=== PATIENT | female | born 1940 | race African-American/Black ===

== ENCOUNTER → 2018-05-01 | Outpatient (CLI) | payer MEDICARE, OTHER ==
[~2018-05-01] MED LIST: DIGO125T82 PO; DOCU-138 PO; ELIQUIS PO; FAMO20TA8 PO; FURO40TA5 PO; LEVE500T19 PO; LIP40 PO; METF500T6 PO; OCD PO; PHEN100C12 PO
== END | disposition home or self-care (01) ==
LOC: RAD 11:31
PROVIDERS: ATTEND Family Medicine
DX: J16.8 Pneumonia due to other specified infectious organisms (principal)
CPT/HCPCS: 71046

== ENCOUNTER 2023-05-08 20:35 | Inpatient (IN) | payer MEDICARE, OTHER ==
[~2023-05-08] VITALS: Ht 188 cm; Wt 71.7 kg
[~2023-05-08 20:35] MED LIST changes: +DIGO125T PO; -DIGO125T82 PO; +METF-414 PO; -METF500T6 PO
[2023-05-08 23:09] LABS: CLARITY URINE CLOUDY (CLEAR); COLOR URINE DARK YELLOW (YELLOW); KETONES URINE NEGATIVE (NEGATIVE); LEUKOCYTE ESTERASE URINE 3+ (NEGATIVE); NITRITE URINE NEGATIVE (NEGATIVE); OCCULT BLOOD URINE 1+ (NEGATIVE); PH URINE 5.5 (4.5-8.0); PROTEIN URINE TRACE (NEGATIVE)
[2023-05-08 23:34] LABS: EOSINOPHILS % 1.6 % (0.0-5.0); HEMATOCRIT. 38.5 % (36.0-48.0); HEMOGLOBIN. 12.7 g/dL (12.0-16.0); LYMPHOCYTES % 36.3 % (20.0-50.0); MEAN CORPUSCULAR VOLUME 94.1 fL (81.0-99.0); MEAN PLATELET VOLUME 8.2 fl (7.4-10.4); MONOCYTES % 10.9 % (2.0-8.0); NEUTROPHILS % 50.2 % (40.0-76.0); PLATELET 240 x1000/uL (130-400); RED BLOOD CELL COUNT 4.09 mill/uL (4.2-5.4); RED CELL DISTRIBUTION WIDTH 15.1 % (11.6-14.6)
[2023-05-08 23:40] LABS: INR 1.2; PROTHROMBIN TIME 12.4 sec (9.6-11.0)
[2023-05-08 23:50] LABS: CHLORIDE 108 mEq/L (98-107)
[2023-05-09] MEDS ORDERED: CEFTRIAXONE 1GM PREMIX 50 ML IV NR (01:30)
[2023-05-09] MEDS ORDERED: FLUCONAZOLE 100MG TABLET PO NR (01:30)
[2023-05-09 04:00] VITALS: BP 128/83; PULSE 80; RESP 20; TEMP 97.8
[2023-05-09 04:37] VITALS: BP 138/74; PULSE 80; RESP 20; TEMP 96.4
[2023-05-09] MEDS ORDERED: LEVETIRACETAM 500MG TABLET PO ONE (06:15)
[2023-05-09] MEDS ORDERED: ACETAMINOPHEN 325MG TABLET PO PRN ×3 (06:15→12:00)
[2023-05-09] MEDS ORDERED: ASPIRIN 81MG TABLET PO ONE (06:15)
[2023-05-09 08:00] VITALS: BP 124/80; PULSE 87; RESP 19; TEMP 98.1
[2023-05-09] MEDS: ASPIRIN 81MG TABLET PO SCH (09:00)
[2023-05-09] MEDS: AMIODARONE HCL 200 MG TABLET PO SCH (09:00)
[2023-05-09] MEDS: LOSARTAN POTASSIUM 50 MG TABLET PO SCH (09:00)
[2023-05-09] MEDS: LEVETIRACETAM 500MG TABLET PO SCH (09:00)
[2023-05-09] MEDS: DIGOXIN 125MCG TABLET PO SCH (09:00)
[2023-05-09] MEDS: PANTOPRAZOLE SODIUM 40 MG/VIAL IV SCH (09:00)
[2023-05-09 12:00] VITALS: BP 128/76; PULSE 74; RESP 20; TEMP 98.2
[2023-05-09] MEDS ORDERED: DOCUSATE SODIUM 100MG CAPSULE PO PRN (12:00)
[2023-05-09] MEDS ORDERED: FLUCONAZOLE 200MG/100ML PREMIX IV ONE (12:00)
[2023-05-09] MEDS ORDERED: IPRATROPIUM/ALBUTEROL 0.5-3(2.5)MG/3ML NEB HHN PRN (12:00)
[2023-05-09] MEDS ORDERED: ONDANSETRON HCL 4MG/2ML INJ IV PRN (12:00)
[2023-05-09 13:33] LABS: CHLORIDE 108 mEq/L (98-107)
[2023-05-09] MEDS ORDERED: FLUCONAZOLE 200 MG/100ML BAG 100 ML IV NR (14:00)
[2023-05-09 14:10] LABS: BASOPHILS % 1.1 % (0.0-2.0); EOSINOPHILS % 2.3 % (0.0-5.0); HEMOGLOBIN. 12.3 g/dL (12.0-16.0); LYMPHOCYTES % 41.2 % (20.0-50.0); MEAN CORPUSCULAR HEMOGLOBIN 31.1 pg (28.0-32.0); MEAN CORPUSCULAR VOLUME 93.9 fL (81.0-99.0); MEAN PLATELET VOLUME 8.7 fl (7.4-10.4); MONOCYTES % 9.6 % (2.0-8.0); NEUTROPHILS % 45.8 % (40.0-76.0); PLATELET 268 x1000/uL (130-400); RED BLOOD CELL COUNT 3.94 mill/uL (4.2-5.4); RED CELL DISTRIBUTION WIDTH 15.2 % (11.6-14.6)
[2023-05-09 16:00] VITALS: BP 147/85; PULSE 56; RESP 20; TEMP 97.9
[2023-05-09] MEDS ORDERED: DEXTROSE 50% WATER 50ML SYRINGE IV PRN (16:45)
[2023-05-09] MEDS: ATORVASTATIN CALCIUM 40MG TABLET PO SCH (17:00)
[2023-05-09] MEDS: LORAZEPAM 2MG/ML CPJ IV NR (17:08)
[2023-05-09] MEDS: BLOOD SUGAR DIAGNOSTIC STRIP TEST SCH ×2 (17:20→21:00)
[2023-05-09] MEDS: INSULIN LISPRO 100 UNITS/ML SUBCUT SCH ×2 (17:50→21:00)
[2023-05-09 20:00] VITALS: BP 136/56; PULSE 68; RESP 17; TEMP 98.7
[2023-05-09] MEDS: CEFTRIAXONE 1,000 MG in DEXTROSE 5% WATER 50 ML IV SCH (21:57)
[2023-05-09 22:16] LABS: CREATINE KINASE 50 IU/L (26-192)
[2023-05-10] VITALS: BP 119/68; PULSE 71; RESP 18; TEMP 97.4
[2023-05-10 04:00] VITALS: BP 139/72; PULSE 71; RESP 20; TEMP 98.6
[2023-05-10] MEDS: BLOOD SUGAR DIAGNOSTIC STRIP TEST SCH ×4 (06:37→21:30)
[2023-05-10] MEDS: INSULIN LISPRO 100 UNITS/ML SUBCUT SCH ×4 (07:50→21:00)
[2023-05-10] MEDS: CALCIUM CARBONATE/VITAMIN D3 500MG TABLET PO SCH (08:48)
[2023-05-10] MEDS: DIGOXIN 125MCG TABLET PO SCH (08:48)
[2023-05-10] MEDS: LEVETIRACETAM 500MG TABLET PO SCH (08:49)
[2023-05-10] MEDS: LOSARTAN POTASSIUM 50 MG TABLET PO SCH (08:49)
[2023-05-10] MEDS: FUROSEMIDE 40MG TABLET PO SCH (08:49)
[2023-05-10] MEDS: ASPIRIN 81MG TABLET PO SCH (08:50)
[2023-05-10] MEDS: PANTOPRAZOLE SODIUM 40 MG/VIAL IV SCH (08:50)
[2023-05-10 12:00] VITALS: BP 87/65; PULSE 70; RESP 17; TEMP 96.6
[2023-05-10] MEDS ORDERED: APIXABAN 5 MG TABLET PO SCH (12:00)
[2023-05-10 15:05] VITALS: BP 87/65; PULSE 70; TEMP 96.6; O2SAT 97
[2023-05-10 16:00] VITALS: BP 136/76; PULSE 83; RESP 20; TEMP 96.9
[2023-05-10] MEDS: LORAZEPAM 2MG/ML CPJ IV NR (16:30)
[2023-05-10] MEDS: ATORVASTATIN CALCIUM 40MG TABLET PO SCH (17:00)
[2023-05-10] MEDS: APIXABAN 2.5 MG TABLET PO SCH (17:00)
[2023-05-10 20:00] VITALS: BP 134/77; PULSE 76; RESP 20; TEMP 98.8
[2023-05-10] MEDS: CEFTRIAXONE 1,000 MG in DEXTROSE 5% WATER 50 ML IV SCH (21:32)
[2023-05-11] VITALS: BP 130/80; PULSE 90; RESP 18; TEMP 98.7
[2023-05-11 04:00] VITALS: BP 138/83; PULSE 90; RESP 16; TEMP 98.2
[2023-05-11] MEDS: BLOOD SUGAR DIAGNOSTIC STRIP TEST SCH ×2 (05:40→12:06)
[2023-05-11 07:49] LABS: BASOPHILS % 1.5 % (0.0-2.0); HEMATOCRIT. 36.3 % (36.0-48.0); HEMOGLOBIN. 12.6 g/dL (12.0-16.0); LYMPHOCYTES % 41.4 % (20.0-50.0); MEAN CORPUSCULAR VOLUME 92.6 fL (81.0-99.0); MEAN PLATELET VOLUME 8.2 fl (7.4-10.4); MONOCYTES % 8.5 % (2.0-8.0); NEUTROPHILS % 45.6 % (40.0-76.0); PLATELET 290 x1000/uL (130-400); RED BLOOD CELL COUNT 3.92 mill/uL (4.2-5.4)
[2023-05-11] MEDS: INSULIN LISPRO 100 UNITS/ML SUBCUT SCH ×2 (07:50→12:07)
[2023-05-11 07:54] LABS: CHLORIDE 105 mEq/L (98-107)
[2023-05-11] MEDS: LEVETIRACETAM 500MG TABLET PO SCH ×2 (07:57→08:46)
[2023-05-11] MEDS: APIXABAN 2.5 MG TABLET PO SCH ×2 (07:57→08:46)
[2023-05-11] MEDS: CALCIUM CARBONATE/VITAMIN D3 500MG TABLET PO SCH ×2 (07:57→08:46)
[2023-05-11] MEDS: FUROSEMIDE 40MG TABLET PO SCH ×2 (07:57→08:46)
[2023-05-11] MEDS: DIGOXIN 125MCG TABLET PO SCH ×2 (07:57→08:46)
[2023-05-11] MEDS: ASPIRIN 81MG TABLET PO SCH ×2 (07:57→08:46)
[2023-05-11] MEDS: LOSARTAN POTASSIUM 50 MG TABLET PO SCH ×2 (07:57→08:46)
[2023-05-11] MEDS: AMIODARONE HCL 200 MG TABLET PO SCH ×2 (07:57→08:46)
[2023-05-11] MEDS: FAMOTIDINE 20MG/2ML VIAL IV SCH ×2 (07:58→08:46)
[2023-05-11 08:00] VITALS: BP 140/87; PULSE 73; RESP 19; TEMP 96.6
[2023-05-11 08:07] LABS: HDL CHOLESTEROL 38 mg/dL (40-59); LDL CHOLESTEROL 126 mg/dL (5-100)
[2023-05-11 12:00] VITALS: BP 109/72; PULSE 66; RESP 19; TEMP 97.9
== END 2023-05-11 14:46 | disposition home or self-care (01) | DRG 463 ==
LOC: ER 20:35 → MICUSO 05-09 02:23 → 6EST 05-09 03:58
PROVIDERS: ADMIT Internal Medicine; ATTEND Internal Medicine
DX: B37.49 Other urogenital candidiasis (principal); I42.9 Cardiomyopathy, unspecified; I50.9 Heart failure, unspecified; I11.0 Hypertensive heart disease with heart failure; I48.20 Chronic atrial fibrillation, unspecified; I69.351 Hemiplegia and hemiparesis following cerebral infarction affecting right dominant side; E11.9 Type 2 diabetes mellitus without complications; M06.9 Rheumatoid arthritis, unspecified; E78.5 Hyperlipidemia, unspecified; Z74.01 Bed confinement status; I25.2 Old myocardial infarction; Z79.01 Long term (current) use of anticoagulants; Z88.0 Allergy status to penicillin; Z79.4 Long term (current) use of insulin; Z99.3 Dependence on wheelchair; W18.30XA Fall on same level, unspecified, initial encounter; Y93.89 Activity, other specified; Y92.89 Other specified places as the place of occurrence of the external cause; Y99.8 Other external cause status
CPT/HCPCS: 36415; 70551; 71045; 72141; 80048; 80053; 80061; 80185; 81003; 82550; 82962; 83036; 83605; 83735; 84145; 84484; 85025; 87077; 87186; 93005; 93306; 99285; A6261; C9113; J0696; J1450; J2060; J7060

== ENCOUNTER 2023-06-10 11:22 | Inpatient (IN) | payer MEDICARE, OTHER ==
[~2023-06-10] VITALS: Ht 188 cm; Wt 73.9 kg
[~2023-06-10 11:22] MED LIST changes: -ELIQUIS PO
[2023-06-10] MEDS ORDERED: KEPP500 PO (12:57)
[2023-06-10] MEDS ORDERED: APIX2.5T PO (12:57)
[2023-06-10] MEDS ORDERED: LOSA50TA41 PO (12:58)
[2023-06-10] MEDS ORDERED: CLONIDINE 0.1MG TABLET PO PRN (13:00)
[2023-06-10] MEDS ORDERED: ACETAMINOPHEN 325MG TABLET PO PRN (13:00)
[2023-06-10] MEDS ORDERED: ONDANSETRON HCL 4MG/2ML INJ IV PRN (13:00)
[2023-06-10] MEDS ORDERED: DOCU250C14 PO (13:00)
[2023-06-10 13:05] LABS: BASOPHILS % 0.9 % (0.0-2.0); EOSINOPHILS % 0.2 % (0.0-5.0); HEMATOCRIT. 32.9 % (36.0-48.0); LYMPHOCYTES % 17.5 % (20.0-50.0); MEAN CORPUSCULAR HEMOGLOBIN 30.4 pg (28.0-32.0); MEAN CORPUSCULAR HGB CONC 33.4 g/dL (31.0-37.0); MEAN CORPUSCULAR VOLUME 91.2 fL (81.0-99.0); MEAN PLATELET VOLUME 7.3 fl (7.4-10.4); MONOCYTES % 6.9 % (2.0-8.0); NEUTROPHILS % 74.5 % (40.0-76.0); PLATELET 319 x1000/uL (130-400); RED CELL DISTRIBUTION WIDTH 15.3 % (11.6-14.6); WHITE BLOOD COUNT 10.5 x1000/uL (4.5-11.0)
[2023-06-10 13:13] LABS: CHLORIDE 106 mEq/L (98-107); INDEX HEMOLYSI 1 (1-3); INDEX ICTERIC 1 (1-4); INDEX LIPEMIC 1 (1-3); POTASSIUM 3.8 mEq/L (3.5-5.1); SODIUM 136 mEq/L (136-145)
[2023-06-10] MEDS: SODIUM CHLORIDE 0.45% 1,000 ML IV SCH (13:17)
[2023-06-10 13:24] LABS: ALANINE AMINOTRANSFERASE 23 IU/L (13-61); ALBUMIN 2.2 g/dL (3.4-5.0); ASPARTATE AMINOTRANSFERASE 26 IU/L (15-37); BILIRUBIN TOTAL 0.8 mg/dL (0.1-1.0); CALCIUM 8.5 mg/dL (8.5-10.1); CARBON DIOXIDE 25 mEq/L (21-32); CREATININE 0.7 mg/dL (0.6-1.3); GLUCOSE 144 mg/dL (70-105); PROTEIN TOTAL 8.5 g/dL (6.0-8.3); TROPONIN I HIGH SENSITIVITY 40 ng/L (<54); UREA NITROGEN BLOOD 12 mg/dL (7-21)
[2023-06-10 14:32] LABS: CLARITY URINE TURBID (CLEAR); COLOR URINE DARK YELLOW (YELLOW); GLUCOSE URINE NEGATIVE (NEGATIVE); KETONES URINE NEGATIVE (NEGATIVE); LEUKOCYTE ESTERASE URINE 3+ (NEGATIVE); NITRITE URINE NEGATIVE (NEGATIVE); OCCULT BLOOD URINE 2+ (NEGATIVE); PROTEIN URINE 1+ (NEGATIVE); SPECIFIC GRAVITY URINE 1.015 (1.005-1.030)
[2023-06-10 14:59] LABS: *AMPHETAMINES SCREEN URINE NEGATIVE (NEGATIVE); *BARBITURATES SCREEN URINE NEGATIVE (NEGATIVE); *BENZODIAZEPINES SCREEN URINE NEGATIVE (NEGATIVE); *COCAINE SCREEN URINE NEGATIVE (NEGATIVE); CANNABINOID URINE SCREEN NEGATIVE (NEGATIVE); ECSTASY MDMA SCREEN URINE NEGATIVE (NEGATIVE); METHADONE URINE SCREEN NEGATIVE (NEGATIVE); OPIATES URINE SCREEN NEGATIVE (NEGATIVE); PHENCYCLIDINE URINE SCREEN NEGATIVE (NEGATIVE)
[2023-06-10] MEDS ORDERED: CEFTRIAXONE 1GM PREMIX 50 ML IV ONE (15:00)
[2023-06-10 15:04] LABS: WBC URINE 50-100 /hpf (0-2)
[2023-06-10 15:05] LABS: BACTERIA URINE 1+; SQUAMOUS EPITHELIAL CELL URINE 2+ /lpf (RARE/1+); YEAST URINE 4+
[2023-06-10] MEDS: AMIODARONE HCL 200 MG TABLET PO SCH (15:15)
[2023-06-10] MEDS: ATORVASTATIN CALCIUM 40MG TABLET PO SCH (17:00)
[2023-06-10] MEDS: APIXABAN 2.5 MG TABLET PO SCH (17:00)
[2023-06-10] MEDS: CARVEDILOL 6.25 MG TABLET PO SCH (17:57)
[2023-06-10] MEDS: LEVETIRACETAM 500MG TABLET PO SCH (17:58)
[2023-06-10] MEDS: PHENYTOIN SODIUM EXTENDED 100MG CAPSULE PO SCH (17:58)
[2023-06-10 21:00] VITALS: BP 146/73; PULSE 82; RESP 16; TEMP 97.5
[2023-06-10] MEDS: METFORMIN HCL 500MG TABLET PO SCH (21:00)
[2023-06-10 22:26] LABS: VITAMIN B12 SERUM 372 pg/mL (211-911)
[2023-06-10] MEDS ORDERED: FAMO40TA7 PO (23:03)
[2023-06-10] MEDS ORDERED: AMIO100T4 PO (23:03)
[2023-06-10] MEDS ORDERED: VITA250012 PO (23:03)
[2023-06-10 23:35] LABS: PHENYTOIN 4.8 ug/mL (10-20); T4 FREE 1.99 ng/dL (0.76-1.46); THYROID STIMULATING HORMONE 0.44 uIU/mL (0.36-3.74)
[2023-06-11] VITALS: BP 124/79; PULSE 74; RESP 18; TEMP 99.7
[2023-06-11 04:00] VITALS: BP 138/92; PULSE 82; RESP 17; TEMP 97.6
[2023-06-11] MEDS: SODIUM CHLORIDE 0.45% 1,000 ML IV SCH ×2 (05:06→21:16)
[2023-06-11 06:01] LABS: BASOPHILS % 0.6 % (0.0-2.0); EOSINOPHILS % 0.5 % (0.0-5.0); HEMATOCRIT. 29.5 % (36.0-48.0); LYMPHOCYTES % 16.8 % (20.0-50.0); MEAN CORPUSCULAR HEMOGLOBIN 30.7 pg (28.0-32.0); MEAN CORPUSCULAR HGB CONC 33.9 g/dL (31.0-37.0); MEAN CORPUSCULAR VOLUME 90.7 fL (81.0-99.0); MEAN PLATELET VOLUME 7.7 fl (7.4-10.4); MONOCYTES % 8.8 % (2.0-8.0); NEUTROPHILS % 73.3 % (40.0-76.0); PLATELET 312 x1000/uL (130-400); RED BLOOD CELL COUNT 3.26 mill/uL (4.2-5.4); WHITE BLOOD COUNT 9.7 x1000/uL (4.5-11.0)
[2023-06-11 07:02] LABS: CHLORIDE 103 mEq/L (98-107); INDEX HEMOLYSI 1 (1-3); INDEX ICTERIC 1 (1-4); INDEX LIPEMIC 1 (1-3); POTASSIUM 3.7 mEq/L (3.5-5.1); SODIUM 134 mEq/L (136-145)
[2023-06-11 07:13] LABS: ALANINE AMINOTRANSFERASE 17 IU/L (13-61); ALBUMIN 1.9 g/dL (3.4-5.0); ASPARTATE AMINOTRANSFERASE 17 IU/L (15-37); BILIRUBIN TOTAL 0.7 mg/dL (0.1-1.0); CALCIUM 8.2 mg/dL (8.5-10.1); CARBON DIOXIDE 25 mEq/L (21-32); CREATININE 0.5 mg/dL (0.6-1.3); GLUCOSE 143 mg/dL (70-105); PROTEIN TOTAL 7.5 g/dL (6.0-8.3); UREA NITROGEN BLOOD 9 mg/dL (7-21)
[2023-06-11] MEDS: PHENYTOIN SODIUM EXTENDED 100MG CAPSULE PO SCH ×3 (09:28→21:11)
[2023-06-11] MEDS: LEVETIRACETAM 500MG TABLET PO SCH ×2 (09:28→17:01)
[2023-06-11] MEDS: FUROSEMIDE 40MG TABLET PO SCH (09:28)
[2023-06-11] MEDS: APIXABAN 2.5 MG TABLET PO SCH ×2 (09:29→17:02)
[2023-06-11] MEDS: CARVEDILOL 6.25 MG TABLET PO SCH ×2 (09:29→17:01)
[2023-06-11] MEDS: AMIODARONE HCL 200 MG TABLET PO SCH (09:29)
[2023-06-11] MEDS: LOSARTAN 50 MG TABLET PO SCH (10:00)
[2023-06-11] MEDS ORDERED: DEXTROSE 50% WATER 50ML SYRINGE IV PRN (11:30)
[2023-06-11 12:00] VITALS: BP 158/71; PULSE 102; RESP 18; TEMP 98.8
[2023-06-11] MEDS: BLOOD SUGAR DIAGNOSTIC STRIP TEST SCH ×3 (12:10→21:16)
[2023-06-11] MEDS ORDERED: NITROGLYCERIN SPRAY/4.9GM CAN TL NR (12:15)
[2023-06-11] MEDS: INSULIN LISPRO 100 UNITS/ML SUBCUT SCH ×3 (12:40→21:16)
[2023-06-11] MEDS ORDERED: IOHEXOL-350 100 ML BOTTLE ONE (12:40)
[2023-06-11] MEDS ORDERED: FLUCONAZOLE 200 MG/100ML BAG 100 ML IV SCH (13:00)
[2023-06-11] MEDS ORDERED: VANCOMYCIN 1.25GM PMX (XELLIA) 250 ML IV NR (14:00)
[2023-06-11] MEDS ORDERED: CALC1TAB PO (14:54)
[2023-06-11] MEDS ORDERED: AMI2 PO (14:57)
[2023-06-11] MEDS ORDERED: LOSA50TA41 PO (14:58)
[2023-06-11 16:00] VITALS: BP 119/68; PULSE 68; RESP 18; TEMP 97.6
[2023-06-11] MEDS: ATORVASTATIN CALCIUM 40MG TABLET PO SCH (17:01)
[2023-06-11] MEDS: FLUCONAZOLE 200 MG/100ML BAG 100 ML IV SCH (18:00)
[2023-06-11 20:00] VITALS: BP 125/81; PULSE 91; RESP 18; TEMP 98.1
[2023-06-11] MEDS: METFORMIN HCL 500MG TABLET PO SCH (21:11)
[2023-06-12] VITALS: BP_SYST 113; BP_SYST 117; BP_DIAS 59; BP_DIAS 68; PULSE 77; PULSE 92; RESP 17; RESP 18; TEMP 97.8; TEMP 98.1
[2023-06-12 04:00] VITALS: BP 124/70; PULSE 78; RESP 18; TEMP 99
[2023-06-12] MEDS: BLOOD SUGAR DIAGNOSTIC STRIP TEST SCH ×4 (06:34→21:00)
[2023-06-12] MEDS: INSULIN LISPRO 100 UNITS/ML SUBCUT SCH ×4 (07:00→21:00)
[2023-06-12 08:00] VITALS: BP 122/68; PULSE 78; RESP 18; TEMP 97.8
[2023-06-12] MEDS: LEVETIRACETAM 500MG TABLET PO SCH ×2 (09:27→16:25)
[2023-06-12] MEDS: LOSARTAN 50 MG TABLET PO SCH (09:27)
[2023-06-12] MEDS: AMIODARONE HCL 200 MG TABLET PO SCH (09:28)
[2023-06-12] MEDS: FUROSEMIDE 40MG TABLET PO SCH (09:28)
[2023-06-12] MEDS: CARVEDILOL 6.25 MG TABLET PO SCH ×2 (09:29→16:25)
[2023-06-12 12:00] VITALS: BP 98/61; PULSE 80; RESP 18; TEMP 97.7
[2023-06-12] MEDS: VANCOMYCIN 1G PREMIX 200 ML IV SCH (14:44)
[2023-06-12] MEDS: FLUCONAZOLE 200 MG/100ML BAG 100 ML IV SCH (15:27)
[2023-06-12 16:00] VITALS: BP 135/85; PULSE 91; RESP 18; TEMP 98.6
[2023-06-12] MEDS: ATORVASTATIN CALCIUM 40MG TABLET PO SCH (17:22)
[2023-06-12 17:57] LABS: BASOPHILS % 0.4 % (0.0-2.0); EOSINOPHILS % 0.4 % (0.0-5.0); HEMOGLOBIN. 10.3 g/dL (12.0-16.0); LYMPHOCYTES % 16.8 % (20.0-50.0); MEAN CORPUSCULAR HEMOGLOBIN 29.8 pg (28.0-32.0); MEAN CORPUSCULAR HGB CONC 32.1 g/dL (31.0-37.0); MEAN CORPUSCULAR VOLUME 92.7 fL (81.0-99.0); MONOCYTES % 8.8 % (2.0-8.0); NEUTROPHILS % 73.6 % (40.0-76.0); PLATELET 315 x1000/uL (130-400); RED BLOOD CELL COUNT 3.45 mill/uL (4.2-5.4); RED CELL DISTRIBUTION WIDTH 15.7 % (11.6-14.6); WHITE BLOOD COUNT 7.9 x1000/uL (4.5-11.0)
[2023-06-12 18:10] LABS: CHLORIDE 106 mEq/L (98-107); INDEX HEMOLYSI 2 (1-3); INDEX ICTERIC 1 (1-4); INDEX LIPEMIC 1 (1-3); POTASSIUM 4.4 mEq/L (3.5-5.1); SODIUM 135 mEq/L (136-145)
[2023-06-12 18:14] LABS: CALCIUM 8.3 mg/dL (8.5-10.1); CARBON DIOXIDE 22 mEq/L (21-32); CREATININE 0.5 mg/dL (0.6-1.3); GLUCOSE 167 mg/dL (70-105); UREA NITROGEN BLOOD 10 mg/dL (7-21)
[2023-06-12 20:00] VITALS: PULSE 89; RESP 18; TEMP 98
[2023-06-12] MEDS: METFORMIN HCL 500MG TABLET PO SCH (21:00)
[2023-06-12] MEDS: PHENYTOIN SODIUM EXTENDED 100MG CAPSULE PO SCH (21:17)
[2023-06-12] MEDS: SODIUM CHLORIDE 0.45% 1,000 ML IV SCH (21:18)
[2023-06-13] VITALS: PULSE 81; RESP 20; TEMP 97.8
[2023-06-13 04:00] VITALS: BP 108/55; PULSE 72; RESP 18; TEMP 97.9
[2023-06-13 04:08] VITALS: PULSE 81; RESP 20; TEMP 98
[2023-06-13] MEDS: BLOOD SUGAR DIAGNOSTIC STRIP TEST SCH ×4 (06:03→20:20)
[2023-06-13] MEDS: INSULIN LISPRO 100 UNITS/ML SUBCUT SCH ×4 (06:03→21:00)
[2023-06-13] MEDS: SODIUM CHLORIDE 0.45% 1,000 ML IV SCH ×2 (06:07→20:14)
[2023-06-13 07:17] LABS: BASOPHILS % 0.5 % (0.0-2.0); EOSINOPHILS % 0.6 % (0.0-5.0); HEMATOCRIT. 29.1 % (36.0-48.0); HEMOGLOBIN. 9.6 g/dL (12.0-16.0); LYMPHOCYTES % 21.2 % (20.0-50.0); MEAN CORPUSCULAR HEMOGLOBIN 29.8 pg (28.0-32.0); MEAN CORPUSCULAR VOLUME 90.3 fL (81.0-99.0); MEAN PLATELET VOLUME 7.8 fl (7.4-10.4); MONOCYTES % 10.1 % (2.0-8.0); NEUTROPHILS % 67.6 % (40.0-76.0); PLATELET 337 x1000/uL (130-400); RED BLOOD CELL COUNT 3.22 mill/uL (4.2-5.4); RED CELL DISTRIBUTION WIDTH 15.4 % (11.6-14.6); WHITE BLOOD COUNT 8.3 x1000/uL (4.5-11.0)
[2023-06-13] MEDS ORDERED: BUPIVACAINE HCL/PF 0.5% (5MG/ML) 10ML ONE (07:28)
[2023-06-13] MEDS ORDERED: LIDOCAINE HCL 1% 20ML VIAL (Pyxis) INJ ONE (07:28)
[2023-06-13] MEDS ORDERED: POLYMYXIN B SULFATE 500000 UNITS/VIAL ONE (07:31)
[2023-06-13] MEDS ORDERED: ETOMIDATE 2MG/ML 10ML VIAL IV ONE (07:36)
[2023-06-13] MEDS ORDERED: SUCCINYLCHOLINE CHLORIDE 200MG/10ML IV ONE (07:36)
[2023-06-13] MEDS ORDERED: PHENYLEPHRINE HCL 10 MG/ML 1ML (IV VIAL) IV ONE (07:41)
[2023-06-13 08:02] LABS: CHLORIDE 105 mEq/L (98-107); INDEX HEMOLYSI 1 (1-3); INDEX ICTERIC 1 (1-4); INDEX LIPEMIC 1 (1-3); POTASSIUM 3.6 mEq/L (3.5-5.1); SODIUM 134 mEq/L (136-145)
[2023-06-13] MEDS ORDERED: CLINDAMYCIN 600MG PREMIX 50 ML IV ONE (08:08)
[2023-06-13 08:11] LABS: CALCIUM 8.3 mg/dL (8.5-10.1); CARBON DIOXIDE 24 mEq/L (21-32); CREATININE 0.5 mg/dL (0.6-1.3); GLUCOSE 130 mg/dL (70-105); UREA NITROGEN BLOOD 9 mg/dL (7-21)
[2023-06-13] MEDS: CARVEDILOL 6.25 MG TABLET PO SCH ×2 (09:00→16:46)
[2023-06-13] MEDS: AMIODARONE HCL 200 MG TABLET PO SCH (09:00)
[2023-06-13] MEDS: LEVETIRACETAM 500MG TABLET PO SCH ×2 (09:00→16:46)
[2023-06-13] MEDS: FUROSEMIDE 40MG TABLET PO SCH (09:00)
[2023-06-13] MEDS: LOSARTAN 50 MG TABLET PO SCH (09:00)
[2023-06-13] MEDS: VANCOMYCIN 1G PREMIX 200 ML IV SCH (09:00)
[2023-06-13 12:00] VITALS: BP 138/66; PULSE 75; RESP 17; TEMP 98.3
[2023-06-13 16:00] VITALS: BP 132/63; PULSE 73; RESP 18; TEMP 98
[2023-06-13] MEDS: FLUCONAZOLE 200 MG/100ML BAG 100 ML IV SCH (16:39)
[2023-06-13] MEDS: ATORVASTATIN CALCIUM 40MG TABLET PO SCH (16:45)
[2023-06-13 20:00] VITALS: BP 99/64; PULSE 73; RESP 18; TEMP 96.8
[2023-06-13] MEDS: PHENYTOIN SODIUM EXTENDED 100MG CAPSULE PO SCH (20:14)
[2023-06-13] MEDS: METFORMIN HCL 500MG TABLET PO SCH (21:00)
[2023-06-14] VITALS: BP 114/66; PULSE 73; RESP 18; TEMP 96.8
[2023-06-14 04:00] VITALS: BP 114/64; PULSE 69; RESP 18; TEMP 96.8
[2023-06-14] MEDS: BLOOD SUGAR DIAGNOSTIC STRIP TEST SCH ×4 (07:10→20:18)
[2023-06-14] MEDS: INSULIN LISPRO 100 UNITS/ML SUBCUT SCH ×4 (07:17→20:17)
[2023-06-14 08:00] VITALS: BP 117/68; PULSE 72; RESP 18; TEMP 97.8
[2023-06-14] MEDS: VANCOMYCIN 1G PREMIX 200 ML IV SCH (08:36)
[2023-06-14] MEDS: LOSARTAN 50 MG TABLET PO SCH (09:41)
[2023-06-14] MEDS: LEVETIRACETAM 500MG TABLET PO SCH ×2 (09:41→18:28)
[2023-06-14] MEDS: APIXABAN 2.5 MG TABLET PO SCH ×2 (09:41→18:28)
[2023-06-14] MEDS: AMIODARONE HCL 200 MG TABLET PO SCH (09:41)
[2023-06-14] MEDS: FUROSEMIDE 40MG TABLET PO SCH (09:42)
[2023-06-14] MEDS: CARVEDILOL 6.25 MG TABLET PO SCH ×2 (09:42→18:27)
[2023-06-14 11:26] LABS: BASOPHILS % 0.8 % (0.0-2.0); EOSINOPHILS % 0.5 % (0.0-5.0); HEMATOCRIT. 30.4 % (36.0-48.0); HEMOGLOBIN. 10.1 g/dL (12.0-16.0); LYMPHOCYTES % 18.6 % (20.0-50.0); MEAN CORPUSCULAR HEMOGLOBIN 30.4 pg (28.0-32.0); MEAN CORPUSCULAR HGB CONC 33.4 g/dL (31.0-37.0); MEAN PLATELET VOLUME 7.8 fl (7.4-10.4); MONOCYTES % 12.3 % (2.0-8.0); NEUTROPHILS % 67.8 % (40.0-76.0); PLATELET 339 x1000/uL (130-400); RED BLOOD CELL COUNT 3.34 mill/uL (4.2-5.4); RED CELL DISTRIBUTION WIDTH 15.3 % (11.6-14.6); WHITE BLOOD COUNT 6.7 x1000/uL (4.5-11.0)
[2023-06-14 11:36] LABS: CALCIUM 8.4 mg/dL (8.5-10.1); CHLORIDE 106 mEq/L (98-107); INDEX HEMOLYSI 1 (1-3); INDEX ICTERIC 1 (1-4); INDEX LIPEMIC 1 (1-3); SODIUM 135 mEq/L (136-145)
[2023-06-14 11:40] LABS: CARBON DIOXIDE 26 mEq/L (21-32); CREATININE 0.5 mg/dL (0.6-1.3); GLUCOSE 130 mg/dL (70-105); UREA NITROGEN BLOOD 13 mg/dL (7-21)
[2023-06-14 12:00] VITALS: BP 121/71; PULSE 72; RESP 20; TEMP 98
[2023-06-14] MEDS ORDERED: LIDOCAINE HCL 1% 10 MG/ML 10ML VIAL ONE (13:27)
[2023-06-14] MEDS: FLUCONAZOLE 200 MG/100ML BAG 100 ML IV SCH (15:06)
[2023-06-14 16:00] VITALS: BP 115/65; PULSE 68; RESP 19; TEMP 98.2
[2023-06-14] MEDS: SODIUM CHLORIDE 0.45% 1,000 ML IV SCH (17:00)
[2023-06-14] MEDS: CEFTRIAXONE 2 G in DEXTROSE 5% WATER 50 ML IV SCH (18:27)
[2023-06-14] MEDS: ATORVASTATIN CALCIUM 40MG TABLET PO SCH (18:27)
[2023-06-14 20:00] VITALS: BP 107/55; PULSE 77; RESP 16; TEMP 96.7
[2023-06-14] MEDS: PHENYTOIN SODIUM EXTENDED 100MG CAPSULE PO SCH (20:16)
[2023-06-14] MEDS: METRONIDAZOLE 500MG TABLET PO SCH (20:17)
[2023-06-14] MEDS: METFORMIN HCL 500MG TABLET PO SCH (20:17)
[2023-06-15] VITALS: BP 117/59; PULSE 74; RESP 18; TEMP 96.8
[2023-06-15 04:00] VITALS: BP 141/63; PULSE 92; RESP 18; TEMP 96.4
[2023-06-15] MEDS: INSULIN LISPRO 100 UNITS/ML SUBCUT SCH ×3 (06:41→21:00)
[2023-06-15] MEDS: BLOOD SUGAR DIAGNOSTIC STRIP TEST SCH ×4 (06:41→21:00)
[2023-06-15 08:00] VITALS: BP 137/75; PULSE 71; RESP 20; TEMP 97.9
[2023-06-15] MEDS: VANCOMYCIN 1G PREMIX 200 ML IV SCH (09:25)
[2023-06-15] MEDS: APIXABAN 2.5 MG TABLET PO SCH ×2 (09:26→17:02)
[2023-06-15] MEDS: FUROSEMIDE 40MG TABLET PO SCH (09:26)
[2023-06-15] MEDS: LEVETIRACETAM 500MG TABLET PO SCH ×2 (09:26→17:02)
[2023-06-15] MEDS: AMIODARONE HCL 200 MG TABLET PO SCH (09:26)
[2023-06-15] MEDS: LOSARTAN 50 MG TABLET PO SCH (09:26)
[2023-06-15] MEDS: METRONIDAZOLE 500MG TABLET PO SCH ×2 (09:26→21:00)
[2023-06-15] MEDS: CARVEDILOL 6.25 MG TABLET PO SCH ×2 (09:27→17:02)
[2023-06-15] MEDS: SODIUM CHLORIDE 0.45% 1,000 ML IV SCH (09:28)
[2023-06-15 12:00] VITALS: BP 131/67; PULSE 68; RESP 20; TEMP 98.3
[2023-06-15 16:00] VITALS: BP 132/81; PULSE 87; RESP 20; TEMP 98.4
[2023-06-15] MEDS: FLUCONAZOLE 200 MG/100ML BAG 100 ML IV SCH (16:55)
[2023-06-15] MEDS: ATORVASTATIN CALCIUM 40MG TABLET PO SCH (17:02)
[2023-06-15] MEDS: CEFTRIAXONE 2 G in DEXTROSE 5% WATER 50 ML IV SCH (17:02)
[2023-06-15 20:00] VITALS: BP 117/78; PULSE 103; RESP 16; TEMP 97.2
[2023-06-15] MEDS: METFORMIN HCL 500MG TABLET PO SCH (21:00)
[2023-06-15] MEDS: PHENYTOIN SODIUM EXTENDED 100MG CAPSULE PO SCH (21:00)
[2023-06-16] VITALS: BP 129/84; PULSE 75; RESP 18; TEMP 97.2
[2023-06-16] MEDS: SODIUM CHLORIDE 0.45% 1,000 ML IV SCH ×2 (02:07→18:05)
[2023-06-16 04:00] VITALS: BP 128/85; PULSE 91; RESP 18; TEMP 96.7
[2023-06-16] MEDS: INSULIN LISPRO 100 UNITS/ML SUBCUT SCH ×4 (06:09→21:00)
[2023-06-16] MEDS: BLOOD SUGAR DIAGNOSTIC STRIP TEST SCH ×4 (06:12→21:00)
[2023-06-16 08:00] VITALS: BP 135/80; PULSE 76; RESP 20; TEMP 98
[2023-06-16] MEDS: LOSARTAN 50 MG TABLET PO SCH (08:44)
[2023-06-16] MEDS: AMIODARONE HCL 200 MG TABLET PO SCH (08:44)
[2023-06-16] MEDS: FUROSEMIDE 40MG TABLET PO SCH (08:44)
[2023-06-16] MEDS: VANCOMYCIN 1G PREMIX 200 ML IV SCH (08:44)
[2023-06-16] MEDS: LEVETIRACETAM 500MG TABLET PO SCH ×2 (08:44→17:56)
[2023-06-16] MEDS: APIXABAN 2.5 MG TABLET PO SCH ×2 (08:44→17:56)
[2023-06-16] MEDS: CARVEDILOL 6.25 MG TABLET PO SCH ×2 (08:45→17:00)
[2023-06-16] MEDS: METRONIDAZOLE 500MG TABLET PO SCH ×2 (08:45→22:21)
[2023-06-16 09:33] LABS: CHLORIDE 105 mEq/L (98-107); INDEX HEMOLYSI 1 (1-3); INDEX ICTERIC 1 (1-4); INDEX LIPEMIC 1 (1-3); POTASSIUM 3.3 mEq/L (3.5-5.1); SODIUM 136 mEq/L (136-145)
[2023-06-16 09:43] LABS: CARBON DIOXIDE 26 mEq/L (21-32); CREATININE 0.5 mg/dL (0.6-1.3); GLUCOSE 160 mg/dL (70-105); UREA NITROGEN BLOOD 11 mg/dL (7-21)
[2023-06-16 12:00] VITALS: BP 121/64; PULSE 73; RESP 20; TEMP 97
[2023-06-16 16:00] VITALS: BP 128/74; PULSE 88; RESP 20; TEMP 96
[2023-06-16] MEDS: FLUCONAZOLE 200 MG/100ML BAG 100 ML IV SCH (16:19)
[2023-06-16] MEDS: CEFTRIAXONE 2 G in DEXTROSE 5% WATER 50 ML IV SCH (17:55)
[2023-06-16] MEDS: ATORVASTATIN CALCIUM 40MG TABLET PO SCH (17:56)
[2023-06-16 20:00] VITALS: BP 132/78; PULSE 78; RESP 18; TEMP 97.5
[2023-06-16] MEDS: PHENYTOIN SODIUM EXTENDED 100MG CAPSULE PO SCH (22:20)
[2023-06-16] MEDS: METFORMIN HCL 500MG TABLET PO SCH (22:21)
[2023-06-17] VITALS: BP 133/76; PULSE 69; PULSE 73; RESP 18; TEMP 97.5; TEMP 98.1
[2023-06-17 04:00] VITALS: BP 128/82; PULSE 102; RESP 16; TEMP 96.7
[2023-06-17] MEDS: VANCOMYCIN 1G PREMIX 200 ML IV SCH ×2 (04:49→20:04)
[2023-06-17] MEDS: SODIUM CHLORIDE 0.45% 1,000 ML IV SCH (04:49)
[2023-06-17] MEDS: BLOOD SUGAR DIAGNOSTIC STRIP TEST SCH ×4 (06:42→20:43)
[2023-06-17] MEDS: INSULIN LISPRO 100 UNITS/ML SUBCUT SCH ×4 (07:12→20:54)
[2023-06-17 08:00] VITALS: BP 135/76; PULSE 82; RESP 18; TEMP 96.2
[2023-06-17 08:08] LABS: CHLORIDE 104 mEq/L (98-107); INDEX HEMOLYSI 1 (1-3); INDEX ICTERIC 1 (1-4); INDEX LIPEMIC 1 (1-3); POTASSIUM 3.3 mEq/L (3.5-5.1); SODIUM 137 mEq/L (136-145)
[2023-06-17 08:14] LABS: CALCIUM 8.3 mg/dL (8.5-10.1); CARBON DIOXIDE 28 mEq/L (21-32); CREATININE 0.4 mg/dL (0.6-1.3); GLUCOSE 163 mg/dL (70-105); UREA NITROGEN BLOOD 6 mg/dL (7-21)
[2023-06-17] MEDS: LOSARTAN 50 MG TABLET PO SCH (08:40)
[2023-06-17] MEDS: METRONIDAZOLE 500MG TABLET PO SCH ×2 (08:40→20:53)
[2023-06-17] MEDS: APIXABAN 2.5 MG TABLET PO SCH ×2 (08:40→16:46)
[2023-06-17] MEDS: FUROSEMIDE 40MG TABLET PO SCH (08:40)
[2023-06-17] MEDS: AMIODARONE HCL 200 MG TABLET PO SCH (08:40)
[2023-06-17] MEDS: LEVETIRACETAM 500MG TABLET PO SCH ×2 (08:40→16:46)
[2023-06-17] MEDS: CARVEDILOL 6.25 MG TABLET PO SCH ×2 (08:41→16:46)
[2023-06-17 12:00] VITALS: BP 139/80; PULSE 80; RESP 18; TEMP 96.7
[2023-06-17] MEDS ORDERED: POTASSIUM CHLORIDE 20MEQ/PACKET PO NR (12:00)
[2023-06-17] MEDS ORDERED: MORPHINE SULFATE 2 MG/ML CPJ (NOT FOR IM USE) IV PRN (12:15)
[2023-06-17] MEDS: SODIUM HYPOCHLORITE SOLUTION (0.5%)FULL STRENGTH TOP SCH (12:21)
[2023-06-17] MEDS ORDERED: NALOXONE HCL 0.4MG/ML VIAL IV PRN (12:30)
[2023-06-17] MEDS: FLUCONAZOLE 200 MG/100ML BAG 100 ML IV SCH (15:05)
[2023-06-17 16:00] VITALS: BP 135/80; PULSE 84; RESP 18; TEMP 96.6
[2023-06-17] MEDS: CEFTRIAXONE 2 G in DEXTROSE 5% WATER 50 ML IV SCH (16:46)
[2023-06-17] MEDS: ATORVASTATIN CALCIUM 40MG TABLET PO SCH (16:46)
[2023-06-17 20:00] VITALS: BP 120/80; PULSE 81; RESP 19; TEMP 97.9
[2023-06-17] MEDS: METFORMIN HCL 500MG TABLET PO SCH (20:53)
[2023-06-17] MEDS: PHENYTOIN SODIUM EXTENDED 100MG CAPSULE PO SCH (20:53)
[2023-06-18 04:00] VITALS: BP 134/78; PULSE 75; RESP 18; TEMP 97.8
[2023-06-18] MEDS: SODIUM CHLORIDE 0.45% 1,000 ML IV SCH ×2 (04:20→20:09)
[2023-06-18] MEDS: INSULIN LISPRO 100 UNITS/ML SUBCUT SCH ×4 (07:06→20:03)
[2023-06-18] MEDS: BLOOD SUGAR DIAGNOSTIC STRIP TEST SCH ×4 (07:06→20:03)
[2023-06-18 08:00] VITALS: BP 134/84; PULSE 93; RESP 18; TEMP 98.2
[2023-06-18 08:54] LABS: CALCIUM 8.3 mg/dL (8.5-10.1); CARBON DIOXIDE 27 mEq/L (21-32); CHLORIDE 106 mEq/L (98-107); CREATININE 0.5 mg/dL (0.6-1.3); GLUCOSE 136 mg/dL (70-105); INDEX HEMOLYSI 1 (1-3); INDEX ICTERIC 1 (1-4); INDEX LIPEMIC 1 (1-3); POTASSIUM 4.1 mEq/L (3.5-5.1); SODIUM 139 mEq/L (136-145); UREA NITROGEN BLOOD 8 mg/dL (7-21)
[2023-06-18] MEDS: METRONIDAZOLE 500MG TABLET PO SCH ×2 (09:05→20:09)
[2023-06-18] MEDS: AMIODARONE HCL 200 MG TABLET PO SCH (09:05)
[2023-06-18] MEDS: LEVETIRACETAM 500MG TABLET PO SCH ×2 (09:06→17:43)
[2023-06-18] MEDS: CARVEDILOL 6.25 MG TABLET PO SCH ×2 (09:07→17:00)
[2023-06-18] MEDS: LOSARTAN 50 MG TABLET PO SCH (09:08)
[2023-06-18] MEDS: FUROSEMIDE 40MG TABLET PO SCH (09:08)
[2023-06-18] MEDS: APIXABAN 2.5 MG TABLET PO SCH ×2 (09:08→17:43)
[2023-06-18] MEDS: SODIUM HYPOCHLORITE SOLUTION (0.5%)FULL STRENGTH TOP SCH (09:09)
[2023-06-18 12:00] VITALS: BP 122/84; PULSE 71; RESP 20; TEMP 98
[2023-06-18] MEDS: VANCOMYCIN 750MG PREMIX 150 ML IV SCH ×2 (14:34→22:16)
[2023-06-18 16:00] VITALS: BP 107/69; PULSE 92; RESP 20; TEMP 97.8
[2023-06-18] MEDS: FLUCONAZOLE 200 MG/100ML BAG 100 ML IV SCH (16:06)
[2023-06-18] MEDS: CEFTRIAXONE 2 G in DEXTROSE 5% WATER 50 ML IV SCH (17:43)
[2023-06-18] MEDS: ATORVASTATIN CALCIUM 40MG TABLET PO SCH (17:43)
[2023-06-18 20:00] VITALS: BP 116/93; PULSE 83; RESP 20; TEMP 99.3
[2023-06-18] MEDS: METFORMIN HCL 500MG TABLET PO SCH (20:08)
[2023-06-18] MEDS: PHENYTOIN SODIUM EXTENDED 100MG CAPSULE PO SCH (20:09)
[2023-06-18] MEDS ORDERED: PHENYTOIN SODIUM 100MG/2ML VIAL IV SCH ×2 (21:30→22:00)
[2023-06-19] VITALS: BP 105/68; PULSE 72; RESP 18; TEMP 98.1
[2023-06-19 04:00] VITALS: BP 110/52; PULSE 101; RESP 18; TEMP 98.8
[2023-06-19] MEDS: BLOOD SUGAR DIAGNOSTIC STRIP TEST SCH ×3 (06:41→16:44)
[2023-06-19] MEDS: INSULIN LISPRO 100 UNITS/ML SUBCUT SCH ×3 (06:41→18:31)
[2023-06-19 06:46] LABS: BASOPHILS % 1.1 % (0.0-2.0); EOSINOPHILS % 1.8 % (0.0-5.0); HEMATOCRIT. 29.6 % (36.0-48.0); HEMOGLOBIN. 9.6 g/dL (12.0-16.0); LYMPHOCYTES % 31.2 % (20.0-50.0); MEAN CORPUSCULAR HGB CONC 32.4 g/dL (31.0-37.0); MEAN CORPUSCULAR VOLUME 92.6 fL (81.0-99.0); MEAN PLATELET VOLUME 7.6 fl (7.4-10.4); MONOCYTES % 7.1 % (2.0-8.0); NEUTROPHILS % 58.8 % (40.0-76.0); PLATELET 452 x1000/uL (130-400); RED BLOOD CELL COUNT 3.19 mill/uL (4.2-5.4); RED CELL DISTRIBUTION WIDTH 15.8 % (11.6-14.6); WHITE BLOOD COUNT 7.7 x1000/uL (4.5-11.0)
[2023-06-19 07:39] LABS: CHLORIDE 101 mEq/L (98-107); INDEX HEMOLYSI 1 (1-3); INDEX ICTERIC 1 (1-4); INDEX LIPEMIC 1 (1-3); POTASSIUM 4.2 mEq/L (3.5-5.1); SODIUM 133 mEq/L (136-145)
[2023-06-19 07:46] LABS: CALCIUM 8.2 mg/dL (8.5-10.1); CARBON DIOXIDE 26 mEq/L (21-32); CREATININE 0.5 mg/dL (0.6-1.3); GLUCOSE 154 mg/dL (70-105); UREA NITROGEN BLOOD 8 mg/dL (7-21)
[2023-06-19 08:00] VITALS: BP_SYST 118; BP_SYST 120; BP_DIAS 65; BP_DIAS 66; PULSE 112; PULSE 75; RESP 18; TEMP 97.6; TEMP 97.7
[2023-06-19] MEDS: CARVEDILOL 6.25 MG TABLET PO SCH ×2 (08:50→16:51)
[2023-06-19] MEDS: VANCOMYCIN 750MG PREMIX 150 ML IV SCH (08:50)
[2023-06-19] MEDS: AMIODARONE HCL 200 MG TABLET PO SCH (08:50)
[2023-06-19] MEDS: LEVETIRACETAM 500MG TABLET PO SCH ×2 (08:50→16:50)
[2023-06-19] MEDS: METRONIDAZOLE 500MG TABLET PO SCH (08:51)
[2023-06-19] MEDS: LOSARTAN 50 MG TABLET PO SCH (08:51)
[2023-06-19] MEDS: FUROSEMIDE 40MG TABLET PO SCH (08:51)
[2023-06-19] MEDS: APIXABAN 2.5 MG TABLET PO SCH ×2 (08:51→16:50)
[2023-06-19] MEDS: SODIUM HYPOCHLORITE SOLUTION (0.5%)FULL STRENGTH TOP SCH (08:52)
[2023-06-19 12:00] VITALS: BP 111/78; PULSE 79; RESP 20; TEMP 98.5
[2023-06-19] MEDS: FLUCONAZOLE 200 MG/100ML BAG 100 ML IV SCH (16:17)
[2023-06-19] MEDS: SODIUM CHLORIDE 0.45% 1,000 ML IV SCH (16:18)
[2023-06-19] MEDS: CEFTRIAXONE 2 G in DEXTROSE 5% WATER 50 ML IV SCH (16:18)
[2023-06-19] MEDS: ATORVASTATIN CALCIUM 40MG TABLET PO SCH (16:50)
[2023-06-19 18:55] VITALS: BP 120/65; PULSE 75; TEMP 97.6; O2SAT 96
[2023-06-20] MEDS ORDERED: VANCOMYCIN 1G PREMIX 200 ML IV SCH
[2023-06-20] MEDS ORDERED: VANCOMYCIN 1.25GM PMX (XELLIA) 250 ML IV SCH (06:00)
[2023-06-20] MEDS ORDERED: FLUCONAZOLE 100MG TABLET PO SCH (16:00)
== END 2023-06-19 20:00 | DRG 951 ==
LOC: ER 11:22 → 8WST 18:15 → EDBEDREQ 18:15 → ENRESERV 20:14
PROVIDERS: ADMIT Internal Medicine; ATTEND Internal Medicine
PROC: 4A00X4Z Measurement of Central Nervous Electrical Activity, External Approach (ICD-10-PCS; 2023-06-11)
PROC: 0QB10ZZ Excision of Sacrum, Open Approach (ICD-10-PCS; principal; 2023-06-13)
PROC: 02HV33Z Insertion of Infusion Device into Superior Vena Cava, Percutaneous Approach (ICD-10-PCS; 2023-06-14)
PROC: B548ZZA Ultrasonography of Superior Vena Cava, Guidance (ICD-10-PCS; 2023-06-14)
DX: E11.52 Type 2 diabetes mellitus with diabetic peripheral angiopathy with gangrene (principal); L89.154 Pressure ulcer of sacral region, stage 4; E43 Unspecified severe protein-calorie malnutrition; I42.9 Cardiomyopathy, unspecified; M46.28 Osteomyelitis of vertebra, sacral and sacrococcygeal region; G93.89 Other specified disorders of brain; I48.20 Chronic atrial fibrillation, unspecified; I69.351 Hemiplegia and hemiparesis following cerebral infarction affecting right dominant side; E11.69 Type 2 diabetes mellitus with other specified complication; B37.49 Other urogenital candidiasis; R47.01 Aphasia; Z20.822 Contact with and (suspected) exposure to COVID-19; I50.9 Heart failure, unspecified; I11.0 Hypertensive heart disease with heart failure; D64.9 Anemia, unspecified; G40.909 Epilepsy, unspecified, not intractable, without status epilepticus; I08.3 Combined rheumatic disorders of mitral, aortic and tricuspid valves; E78.00 Pure hypercholesterolemia, unspecified; I25.10 Atherosclerotic heart disease of native coronary artery without angina pectoris; Z74.01 Bed confinement status; Z79.01 Long term (current) use of anticoagulants; Z79.84 Long term (current) use of oral hypoglycemic drugs; Z79.899 Other long term (current) drug therapy; Z88.0 Allergy status to penicillin
CPT/HCPCS: 36415; 36573; 70544; 70553; 71045; 74176; 75571; 80048; 80053; 80061; 80185; 80202; 80305; 81003; 82607; 82746; 82962; 83036; 83605; 83880; 84145; 84439; 84443; 84481; 84484; 85025; 85651; 87070; 87075; 87077; 87106; 87186; 87426; 88304; 88311; 92610; 93005; 93306; 93880; 93970; 93971; 97110; 97112; 97162; 97164; 97166; 97530; 97535; 99285; C1725; J0330; J0696; J1165; J1450; J1815; J2270; J2370; J3370; J3490; J7060; Q9967; A4315